=== PATIENT | female | born 1990 | race American Indian/Alaskan Native ===

== ENCOUNTER 2018-06-16 12:04 | Emergency (ER) | payer MEDICAID, OTHER ==
--- NOTE | 2018-06-16 12:14 | Emergency Department Report ---
Blank Doc - Documentation Documentation: This is a 27-year-old female that presents with SOB. Patient stated started a fter having an argument with mother 3 days. Also has some weakness and dizzines and some chest pain. This initial assessment/diagnostic orders/clinical plan/treatment(s) is/are subject to change based on patient's health status, clinical progression and re- assessment by fellow clinical providers in the ED. Further treatment and workup at subsequent clinical providers discretion. Patient/guardians urged not to elope from the ED as their condition may be serious if not clinically assessed and managed. Initial orders include: 1- Patient sent to [facility] for further evaluation and treatment 2- labs 3- EKG 4- CXR
[2018-06-16 12:37] LABS: Basophils % (Auto) 0.2 % (0.0-1.8); Eosinophils % (Auto) 0.3 % (0.0-4.3); Hematocrit 33.5 % (30.3-42.9); Hemoglobin 10.8 gm/dl (10.1-14.3); Lymphocytes # (Auto) 1.6 K/mm3 (1.2-5.4); Lymphocytes % (Auto) 42.3 % (13.4-35.0); Mean Corpuscular HGB Conc 32 % (30-34); Mean Corpuscular Volume 72 fl (79-97); Monocytes # (Auto) 0.4 K/mm3 (0.0-0.8); Platelet Count 161 K/mm3 (140-440); Red Blood Count 4.66 M/mm3 (3.65-5.03); Red Cell Distribution Width 15.2 % (13.2-15.2)
[2018-06-16 12:58] LABS: BUN/Creatinine Ratio 7; Blood Urea Nitrogen 6 mg/dL (7-17); Calcium 9.3 mg/dL (8.4-10.2); Hemolysis Index 6
--- NOTE | 2018-06-16 13:51 | XRay Report ---
ROUTINE CHEST, TWO VIEWS: HISTORY: Dyspnea. The trachea, heart, mediastinal contour, lung palacios and bony thorax are unremarkable. IMPRESSION: Unremarkable chest x-ray.
--- NOTE | 2018-06-16 13:57 | Emergency Department Report ---
ED Shortness of Breath HPI - General Chief Complaint: Dyspnea/Respdistress Stated Complaint: SOB/DIZZINESS Time Seen by Provider: 06/16/18 12:13 Source: patient Mode of arrival: Ambulatory Limitations: No Limitations - History of Present Illness Initial Comments: Patient is 27-year-old female with no significant past medical history except for an anxiety/she should follow-up with a psychologist twice a week. Patient presented to the ER complaining of shortness of breath and chest pain and palpitations for the last 3 days. Patient denied any fever or chills. No cough. Patient stated that she's been having some argument with her mother and her relationship with her mother is bothering her and she thinks this is contributing to her current symptoms also. No recent travel or lower extremity swelling. MD Complaint: shortness of breath, chest pain - Related Data Home Medications Medication Instructions Recorded Confirmed Last Taken Emtricitabin/Tenofovir [TRUVADA 100 mg PO DAILY 04/03/13 10/03/15 10/02/15 23:00 200-300 mg] Ritonavir [Norvir] 100 mg PO DAILY 04/03/13 10/03/15 10/02/15 23:00 Pnv No.95/Ferrous Fum/Folic AC 1 each PO DAILY 10/03/15 10/03/15 10/02/15 23:00 [ Caplet] Previous Rx's Medication Instructions Recorded Last Taken Type Docusate Sodium [Colace] 100 mg PO BID PRN #30 capsule 10/03/15 Unknown Rx Ferrous Sulfate [Feosol 325 MG tab] 325 mg PO BID #60 tablet 10/03/15 Unknown Rx Ibuprofen [Motrin 800 MG tab] 800 mg PO Q6HR PRN #30 tablet 10/03/15 Unknown Rx oxyCODONE /ACETAMINOPHEN [Percocet 1 tab PO Q4HR #30 tab 10/03/15 Unknown Rx 5/325] Allergies Allergy/AdvReac Type Severity Reaction Status Date / Time No Known Allergies Allergy Verified 12/27/12 12:16 ED Review of Systems ROS: Stated complaint: SOB/DIZZINESS Other details as noted in HPI Comment: All other systems reviewed and negative Constitutional: denies: chills, fever Respiratory: shortness of breath, SOB at rest. denies: cough, orthopnea, SOB with exertion, wheezing Cardiovascular: chest pain, palpitations Gastrointestinal: denies: abdominal pain, nausea, vomiting, diarrhea, constipation, hematemesis Psychiatric: anxiety. denies: depression, auditory hallucinations, visual hallucinations, homicidal thoughts, suicidal thoughts ED Past Medical Hx - Past Medical History Previous Medical History?: Yes Hx Hypertension: No Hx Congestive Heart Failure: No Hx Diabetes: No Hx Deep Vein Thrombosis: No Hx Renal Disease: No Hx Sickle Cell Disease: No Hx Seizures: No Hx Asthma: Yes (last attack 2012) Hx COPD: No Hx HIV: Yes - Surgical History Past Surgical History?: Yes Additional Surgical History: - Social History Smoking Status: Never Smoker Substance Use Type: None - Medications Home Medications: Home Medications Medication Instructions Recorded Confirmed Last Taken Type Emtricitabin/Tenofovir [TRUVADA 100 mg PO DAILY 04/03/13 10/03/15 10/02/15 23:00 History 200-300 mg] Ritonavir [Norvir] 100 mg PO DAILY 04/03/13 10/03/15 10/02/15 23:00 History Docusate Sodium [Colace] 100 mg PO BID PRN #30 capsule 10/03/15 Unknown Rx Ferrous Sulfate [Feosol 325 MG tab] 325 mg PO BID #60 tablet 10/03/15 Unknown Rx Ibuprofen [Motrin 800 MG tab] 800 mg PO Q6HR PRN #30 tablet 10/03/15 Unknown Rx Pnv No.95/Ferrous Fum/Folic AC 1 each PO DAILY 10/03/15 10/03/15 10/02/15 23:00 History [ Caplet] oxyCODONE /ACETAMINOPHEN [Percocet 1 tab PO Q4HR #30 tab 10/03/15 Unknown Rx 5/325] ED Physical Exam - General Limitations: No Limitations General appearance: alert, in no apparent distress, anxious - Head Head exam: Present: atraumatic, normocephalic, normal inspection - Eye Eye exam: Present: normal appearance, PERRL - ENT ENT exam: Present: normal exam, normal orophraynx, mucous membranes moist - Neck Neck exam: Present: normal inspection, full ROM. Absent: tenderness, meningismus, lymphadenopathy, thyromegaly - Respiratory Respiratory exam: Present: normal lung sounds bilaterally. Absent: respiratory distress, wheezes, rales, rhonchi, chest wall tenderness, accessory muscle use, decreased breath sounds, prolonged expiratory - Cardiovascular Cardiovascular Exam: Present: regular rate, normal rhythm, normal heart sounds - GI/Abdominal GI/Abdominal exam: Present: soft, normal bowel sounds. Absent: distended, tenderness, guarding, rebound, rigid, organomegaly, mass, bruit, pulsatile mass, hernia - Extremities Exam Extremities exam: Present: normal inspection, full ROM, normal capillary refill - Back Exam Back exam: Present: normal inspection, full ROM. Absent: CVA tenderness (R), CVA tenderness (L), muscle spasm, paraspinal tenderness, vertebral tenderness - Neurological Exam Neurological exam: Present: alert, oriented X3, CN II-XII intact, normal gait, reflexes normal - Psychiatric Psychiatric exam: Present: anxious. Absent: depressed, agitated, flat affect, manic, homicidal ideation, suicidal ideation - Skin Skin exam: Present: warm, intact, normal color ED Course Vital Signs 06/16/18 06/16/18 06/16/18 12:13 13:58 13:59 Temperature 97.4 F L 97.5 F L Pulse Rate 89 67 Respiratory 16 17 17 Rate Blood Pressure 113/74 Blood Pressure 108/70 [Right] O2 Sat by Pulse 100 100 100 Oximetry ED Medical Decision Making - Lab Data Result diagrams: 06/16/18 12:25 06/16/18 12:25 - EKG Data -: EKG Interpreted by Me EKG shows normal: sinus rhythm Rate: normal - EKG Data Interpretation: no acute changes Critical care attestation.: If time is entered above; I have spent that time in minutes in the direct care of this critically ill patient, excluding procedure time. ED Disposition Clinical Impression: HIV positive, Chest pain, Shortness of breath Disposition: [id number]-07 LEFT AGAINST MED ADVICE Is pt being admited?: No Condition: Stable Instructions: Chest Pain (ED), Dyspnea (ED) Referrals: KRYSTAL BARTON MD [Primary Care Provider] - 3-5 Days Forms: AMA Form
[2018-06-16 13:59] VITALS: BP 108/70
== END 2018-06-16 14:51 | disposition left against medical advice (07) ==
LOC: ED 12:04
DX: R07.89 Other chest pain (principal); R06.02 Shortness of breath; Z21 Asymptomatic human immunodeficiency virus [HIV] infection status; J45.909 Unspecified asthma, uncomplicated
CPT/HCPCS: 36415; 71046; 80048; 83880; 84484; 85025; 93005; 93010; 99284